=== PATIENT | female | born 1935 | race Asian ===

== ENCOUNTER 2018-01-12 17:29 | Emergency (ER) | payer OTHER ==
[~2018-01-12] VITALS: Ht 157.5 cm; Wt 40.9 kg
[2018-01-12 19:16] LABS: APPEARANCE,URINE CLOUDY (CLEAR); BILIRUBIN,URINE NEGATIVE (NEGATIVE); GLUCOSE, URINE (UA) NEGATIVE (NEGATIVE); KETONES,URINE NEGATIVE (NEGATIVE); LEUKOCYTE ESTERASE ,URINE LARGE (NEGATIVE); NITRATE,URINE NEGATIVE (NEGATIVE); OCCULT BLOOD,URINE LARGE (NEGATIVE); PH,URINE 8.5 (5.0-8.0); PROTEIN,URINE SEE CONFIRM (NEGATIVE); UROBILINOGEN,URINE 0.2 mg/dL (<=1.0)
[2018-01-12 20:05] LABS: SULFOSALICYLIC ACID,URINE 3+ (Negative)
[2018-01-12 20:06] LABS: BACTERIA,URINE Few /HPF (None Seen); WBC,URINE 51-100 /HPF (0-5)
[2018-01-12 20:07] LABS: SQUAMOUS EPITHELIAL CELL,UR Rare /LPF (None Seen)
[2018-01-12] MEDS ORDERED: ACETAMINOPHEN 500 MG TABLET PO ONE (20:15)
[2018-01-12] MEDS ORDERED: PHENAZOPYRIDINE HCL 100 MG TABLET PO ONE (20:15)
[2018-01-12] MEDS ORDERED: SULFAMETHOX/TRIMETH DS 800-160 MG/TABLET PO ONE (20:15)
[2018-01-12 20:26] VITALS: BP 116/74
== END 2018-01-12 20:28 | disposition home or self-care (01) ==
LOC: EMS 17:30
DX: N39.0 Urinary tract infection, site not specified (principal)
CPT/HCPCS: 87086; 99284

== ENCOUNTER 2018-09-02 09:16 | Emergency (ER) | payer MEDICARE, OTHER ==
[~2018-09-02] VITALS: Ht 157.5 cm; Wt 45.5 kg
[2018-09-02] MEDS ORDERED: KETOROLAC TROMETHAMINE 10 MG TABLET PO ONE (12:30)
[2018-09-02 13:04] VITALS: BP 128/42
== END 2018-09-02 13:06 | disposition home or self-care (01) ==
LOC: EMS 09:17
DX: S29.012A Strain of muscle and tendon of back wall of thorax, initial encounter (principal); Z88.8 Allergy status to other drugs, medicaments and biological substances; Z91.018 Allergy to other foods; Z91.011 Allergy to milk products; X50.9XXA Other and unspecified overexertion or strenuous movements or postures, initial encounter; Y93.89 Activity, other specified; Y92.89 Other specified places as the place of occurrence of the external cause; Y99.8 Other external cause status
CPT/HCPCS: 93005

== ENCOUNTER 2018-09-07 11:24 | Emergency (ER) | payer MEDICARE, OTHER ==
[~2018-09-07] VITALS: Ht 157.5 cm; Wt 45.5 kg
[2018-09-07 12:10] VITALS: BP 126/62
== END 2018-09-07 12:36 | disposition home or self-care (01) ==
LOC: EMS 11:25
DX: B02.9 Zoster without complications (principal); M54.9 Dorsalgia, unspecified; Z91.011 Allergy to milk products; Z91.018 Allergy to other foods
CPT/HCPCS: 93005

== ENCOUNTER 2018-09-11 15:22 | Emergency (ER) | payer MEDICARE, OTHER ==
[~2018-09-11] VITALS: Ht 160 cm; Wt 54.5 kg
[2018-09-11 15:29] VITALS: BP 140/68
[2018-09-11] MEDS ORDERED: [UNRECOGNIZED DRUG - REMARK] PO (15:36)
[2018-09-11] MEDS ORDERED: CELECOXIB 200 MG CAPSULE PO ONE (16:15)
[2018-09-11] MEDS ORDERED: LIDOCAINE 5% TRANSDERMAL PATCH TD ONE (16:15)
== END 2018-09-11 17:16 | disposition home or self-care (01) ==
LOC: EDUNIT# 15:22 → EMS 15:27
DX: B02.9 Zoster without complications (principal); N64.4 Mastodynia; M19.90 Unspecified osteoarthritis, unspecified site; Z91.011 Allergy to milk products; Z91.018 Allergy to other foods

== ENCOUNTER 2018-09-14 13:07 | Emergency (ER) | payer MEDICARE, OTHER ==
[~2018-09-14] VITALS: Ht 157.5 cm; Wt 45.5 kg
[~2018-09-14 13:07] MED LIST: [UNRECOGNIZED DRUG - REMARK] PO
[2018-09-14 13:38] LABS: GLUCOSE,POINT OF CARE 109 MG/DL (70-110)
[2018-09-14] MEDS ORDERED: HYDROCODONE/ACETAMINOPHEN 5-325 MG TABLET PO ONE (14:45)
[2018-09-14 16:33] VITALS: BP 129/71
== END 2018-09-14 16:54 | disposition home or self-care (01) ==
LOC: EMS 13:08
DX: B02.9 Zoster without complications (principal); Z91.011 Allergy to milk products; Z91.018 Allergy to other foods

== ENCOUNTER 2018-09-21 12:43 | Emergency (ER) | payer MEDICARE, OTHER ==
[~2018-09-21] VITALS: Ht 157.5 cm; Wt 44.5 kg
[2018-09-21] MEDS ORDERED: HYDROCODONE/ACETAMINOPHEN 5-325 MG TABLET PO ONE (14:45)
[2018-09-21 15:05] VITALS: BP 139/80
== END 2018-09-21 15:28 | disposition home or self-care (01) ==
LOC: EMS 12:43
DX: B02.9 Zoster without complications (principal); Z86.19 Personal history of other infectious and parasitic diseases; Z76.0 Encounter for issue of repeat prescription; Z91.011 Allergy to milk products; Z91.018 Allergy to other foods

== ENCOUNTER 2018-09-26 13:47 | Emergency (ER) | payer MEDICARE, OTHER ==
[~2018-09-26] VITALS: Ht 152.4 cm; Wt 63.6 kg
[2018-09-26] MEDS ORDERED: LIDOCAINE 5% TRANSDERMAL PATCH TD ONE (15:00)
[2018-09-26 16:43] VITALS: BP 120/77
== END 2018-09-26 16:46 | disposition home or self-care (01) ==
LOC: EMS 13:47
DX: B02.9 Zoster without complications (principal); B02.22 Postherpetic trigeminal neuralgia; Z91.011 Allergy to milk products; Z91.018 Allergy to other foods

== ENCOUNTER 2018-09-29 15:30 | Emergency (ER) | payer MEDICARE ==
[~2018-09-29] VITALS: Ht 154.9 cm; Wt 43.6 kg
[2018-09-29] MEDS ORDERED: GABA-531 PO (15:49)
[2018-09-29 18:37] VITALS: BP 128/77
== END 2018-09-29 18:39 | disposition home or self-care (01) ==
LOC: EMS 15:31
DX: B02.29 Other postherpetic nervous system involvement (principal); Z91.011 Allergy to milk products; Z91.018 Allergy to other foods

== ENCOUNTER 2019-06-01 08:45 | Day surgery (SDC) | payer OTHER ==
[~2019-06-01] VITALS: Ht 152.4 cm; Wt 46.4 kg
[~2019-06-01 08:45] MED LIST changes: +CYCLOPENTOLATE HCL 1% 2 ML OPHTHALMIC SOLUTION ONE; +FLURBIPROFEN SODIUM 0.03% 2.5 ML OPHTHALMIC SOLUTION ONE; +GABA-531 PO; +OFLOXACIN 0.3% 5 ML OPHTHALMIC SOLUTION ONE; +PHENYLEPHRINE HCL 2.5% 2 ML OPHTHALMIC SOLUTION ONE; +RINGERS SOLUTION,LACTATED 0 ML IV ONE; +RINGERS SOLUTION,LACTATED 500 ML IV ONE; +TETRACAINE HCL/PF 0.5% 4 ML OPHTHALMIC SOLUTION ONE; +TROPICAMIDE 1% 2 ML OPHTHALMIC SOLUTION ONE; -[UNRECOGNIZED DRUG - REMARK] PO
[2019-06-01] MEDS ORDERED: FentaNYL CITRATE-PF 100 MCG/2 ML VIAL IVP ONE (08:46)
[2019-06-01] MEDS ORDERED: HYALURONATE SOD/CHONDROITIN SOD 0.5 ML VIAL IO ONE (08:46)
[2019-06-01] MEDS ORDERED: HYALURONATE SODIUM 12 MG/ML 0.8 ML SYRINGE IO ONE (08:46)
[2019-06-01] MEDS ORDERED: MIDAZOLAM HCL 2 MG/2 ML VIAL IVP ONE (08:46)
[2019-06-01] MEDS ORDERED: EPINEPHrine 1:1,000 [1 MG/ML] AMP IM ONE (08:46)
[2019-06-01] MEDS ORDERED: POVIDONE-IODINE 10% 15 ML SOLUTION UD TP ONE (08:46)
[2019-06-01] MEDS ORDERED: LIDOCAINE/PF 1% 2 ML VIAL IM ONE (08:46)
[2019-06-01] MEDS ORDERED: TETRACAINE HCL/PF 0.5% 4 ML OPHTHALMIC SOLUTION OD ONE (09:00)
[2019-06-01] MEDS: TROPICAMIDE 1% 2 ML OPHTHALMIC SOLUTION OD SCH ×3 (09:48→10:07)
[2019-06-01] MEDS: OFLOXACIN 0.3% 5 ML OPHTHALMIC SOLUTION OD SCH ×3 (09:49→10:07)
[2019-06-01] MEDS: CYCLOPENTOLATE HCL 1% 2 ML OPHTHALMIC SOLUTION OD SCH ×3 (09:49→10:06)
[2019-06-01] MEDS: FLURBIPROFEN SODIUM 0.03% 2.5 ML OPHTHALMIC SOLUTION OD SCH ×3 (09:49→10:07)
[2019-06-01] MEDS: PHENYLEPHRINE HCL 2.5% 2 ML OPHTHALMIC SOLUTION OD SCH ×3 (09:49→10:06)
[2019-06-01] MEDS ORDERED: RINGERS SOLUTION,LACTATED 500 ML IV ONE (11:09)
== END 2019-06-01 13:05 | disposition home or self-care (01) ==
LOC: SURGERY 08:45
PROVIDERS: ATTEND Ophthalmology
DX: H25.11 Age-related nuclear cataract, right eye (principal); D64.9 Anemia, unspecified; I48.91 Unspecified atrial fibrillation; M13.88 Other specified arthritis, other site; E78.00 Pure hypercholesterolemia, unspecified; Z98.890 Other specified postprocedural states; Z79.899 Other long term (current) drug therapy
CPT/HCPCS: 66984; 93005; J0171; J2250; J3010; J3490 ×2; J7120; V2632